=== PATIENT | female | born 1980 | race Caucasian/White ===

== ENCOUNTER 2023-09-05 13:12 | Inpatient (IN) ==
[2023-09-05 14:09] LABS: Hematocrit (blood only) 39.1 % (37.0-47.0); Hemoglobin 13.3 g/dl (12.0-16.0); Mean Corpuscular Hemoglobin 30.2 pg (25.0-34.0); Mean Corpuscular Volume 88.9 fL (80.0-100.0); Mean Platelet Volume 11.2 fL (9.4-12.4); Platelet Count 288 K/uL (130-400); RDW Coefficient of Variation 13.1 % (11.5-14.5); RDW Standard Deviation 42.5 fL (36.4-46.3); White Blood Count 29.58 K/ul (4.8-10.8)
[2023-09-05 14:19] LABS: Pregnancy Test, Serum Negative (Negative)
[2023-09-05 14:21] LABS: Albumin Globulin Ratio 1.1 (0.9-2); Albumin Level 4.1 gm/dl (3.4-5.0); BUN Creatinine Ratio 12.1 (10-20); Bilirubin,Total 0.9 mg/dl (0.2-1.0); Est GFR (African American) 90.2 ml/min; Est GFR (Non-African American) 77.8 ml/min; Globulin 3.6 gm/dl (2.5-4.0); Potassium 3.7 mmol/L (3.5-5.1); Total Protein 7.7 gm/dl (6.0-8.3)
--- NOTE | 2023-09-05 14:24 | Emergency Department Note ---
History of Present Illness General Chief complaint: Abdominal Pain Stated complaint: ABDOMINAL PAINS R SIDE BY RIB CAGE Time Seen by Provider: 09/05/23 14:15 History of Present Illness Maximum Pain Intensity: 9 NAME: FLOR[place] [id number] H[place]IGH AGE: 43 SEX: F : 1980 ARRIVES VIA: Walk-In INFORMANT: Patient ED PROVIDER(S): FANTA [place], Lalita Silvestre MD The patient is a 43-year-old female inmate who arrives to the emergency department for evaluation of right upper quadrant abdominal pain. She reports she has had persistent vomiting, with nausea, and pain with inspiration. She reports hot flashes and chills with no sick contacts. She states the pain began 2 days ago, and reports is worsened. She denies dysuria, diarrhea, constipation, lower abdominal pain, chest pain or shortness of breath. Her vital signs are stable, she is afebrile. Home Medications Medication Instructions Recorded Confirmed Type acetaminophen 325 mg tablet 650 mg PO BID PRN pain/fever 09/05/23 09/05/23 History (Tylenol) bismuth subsalicylate 262 mg/15 mL 524 mg PO BID PRN Gi Upset 09/05/23 09/05/23 History oral suspension (Pepto-Bismol) bupropion HCl 75 mg tablet 75 mg PO BID 09/05/23 09/05/23 History omeprazole 20 mg tablet,delayed 20 mg PO QAM 09/05/23 09/05/23 History release ondansetron 4 mg disintegrating 4 mg PO Q6H PRN Nausea And Vomiting 09/05/23 09/05/23 History tablet trazodone 150 mg tablet 150 mg PO HS 09/05/23 09/05/23 History Allergies Allergy/AdvReac Type Severity Reaction Status Date / Time gabapentin Allergy Unknown On file w/ Unverified 09/05/23 17:44 [facility] Past Med/Surg History Problem List (Updated 09/05/23 @ 19:55 by FANTA Lassiter) Acute cholecystitis (Acute) Social History Smoking Status: Former smoker Hx Alcohol Use: No Hx Substance Use: No Preferred Language: Kiswahili Communication Ability: Effective Laborer Rags Required: No Beliefs That Will Affect Care: None Current Living Situation: Other Feels Safe at Home: Yes Safety Concerns: Feels Safe At This Time Assistive Devices: Denture - Upper Assistive Devices Comment: partial upper dentuires - not here Physical Exam Vital Signs Vital Signs - 24 hr 09/05/23 13:20 Temperature 36.4 C L Temperature Source Temporal Artery Scan Pulse Rate 90 Pulse Rhythm Regular Pulse Strength Normal Respiratory Rate 20 Respiratory Effort / Characteristics Non-Labored Spontaneous Respiratory Depth Normal Respiratory Pattern Regular Blood Pressure 116/85 Blood Pressure Mean 95 Blood Pressure Position Sitting Pulse Oximetry 95 Oxygen Delivery Method Room Air Sepsis Recent Fever Within 48 Hours No Sepsis New/Unexplained Change in Mental Status No Sepsis Action Taken by Nursing No Action Required VITALS: Vitals are noted on the nurse's note and reviewed by myself. Vital signs stable. GENERAL: 43-year-old female, in no acute distress, nondiaphoretic, well- developed well-nourished. SKIN: The skin was without rashes, erythema, edema, or bruising. HEAD: Normocephalic atraumatic. HEART: Regular rate and rhythm without murmurs gallops or rubs. LUNGS: Clear to auscultation bilaterally without wheezes, rales or rhonchi. No retractions or accessory muscle use. ABDOMEN: Positive bowel sounds x 4. Tender to palpation epigastric/right upper quadrant, no rebound tenderness or guarding. MUSCULOSKELETAL: No muscle atrophy, erythema, or edema noted. Full range of motion without joint tenderness in all extremities. No tenderness to palpation. Normal gait. Strength 5/5 throughout. NEURO: Patient was alert and oriented to person place and time. No focal neurological deficits. Course Administered Medications Sodium Chloride (Nss) 500 mls @ 125 mls/hr IV .Q4H [facility] Stop: 10/05/23 15:44 Last Admin: 09/05/23 18:45 Dose: 125 mls/hr Documented By: Infusion: 09/05/23 18:45 Dose: Infused Documented By: Admin: 09/05/23 15:57 Dose: 125 mls/hr Documented By: HOLLIS Morphine Sulfate (Morphine Sulfate 4 Mg/Ml 1 Ml Carp\Vial) 4 mg IV Q3H PRN PRN Reason: Pain (6,7,8,9,10) Stop: 09/19/23 18:39 Last Admin: 09/05/23 19:13 Dose: 4 mg Documented By: NADJA Discontinued Medications Sodium Chloride (Nss) 1,000 mls @ 999 mls/hr IV .Q1H1M ONE Stop: 09/05/23 15:23 Last Infusion: 09/05/23 16:55 Dose: Infused Documented By: Admin: 09/05/23 15:38 Dose: 999 mls/hr Documented By: HOLLIS Cefoxitin Sodium (Mefoxin) 2,000 mg in 60 mls @ 100 mls/hr IV NOW STA Stop: 09/05/23 16:11 Last Admin: 09/05/23 16:04 Dose: Not Given Documented By: HOLLIS Piperacillin Sod/Tazobactam Sod (Zosyn) 4.5 gm in 100 mls @ 200 mls/hr IV NOW ONE Stop: 09/05/23 16:09 Last Infusion: 09/05/23 16:36 Dose: Infused Documented By: Admin: 09/05/23 15:57 Dose: 200 mls/hr Documented By: HOLLIS Ioversol (Optiray 320 100ml) 94 ml IV ONCE ONE Stop: 09/05/23 14:40 Last Admin: 09/05/23 14:39 Dose: 94 ml Documented By: SKY Medical Decision Making Differential Diagnosis Appendicitis, infections, diverticulitis, UTI, obstruction, mesenteric ischemia, aortic pathology, inflammatory bowel disease, renal colic, PUD, pancreatitis, biliary pathology, hernia, volvulus, constipation, as well as other pathologies. Medical Records Attestation: I reviewed the patient's medical records. Home Medications Current Medication List: was personally reviewed by me Laboratory Data Attestation: I reviewed the patient's lab results. CBC shows leukocytosis of 29.58, stable hemoglobin and hematocrit, CMP shows no electrolyte abnormalities, hCG negative, lipase negative, lactate negative. 09/05/23 13:50 09/05/23 13:50 Lab Results 09/05/23 09/05/23 Range/Units 13:50 15:38 WBC 29.58 H (4.8-10.8) K/ul RBC 4.40 (4.20-5.40) M/uL Hgb 13.3 (12.0-16.0) g/dl Hct 39.1 (37.0-47.0) % MCV 88.9 (80.0-100.0) fL MCH 30.2 (25.0-34.0) pg MCHC 34.0 (32.0-36.0) g/dL RDW Std Deviation 42.5 (36.4-46.3) fL RDW Coeff of Jesica 13.1 (11.5-14.5) % Plt Count 288 (130-400) K/uL MPV 11.2 (9.4-12.4) fL Immature Gran % (Auto) 0.5 % Neut % (Auto) 89.2 % Lymph % (Auto) 5.1 % [place] % (Auto) 5.0 % Eos % (Auto) 0.0 % Baso % (Auto) 0.2 % Neut # (Auto) 26.34 H (1.40-6.50) K/uL Lymph # (Auto) 1.52 (1.20-3.40) K/uL [place] # (Auto) 1.49 H (0.11-0.59) K/uL Eos # (Auto) 0.01 (0.00-0.50) K/uL Baso # (Auto) 0.06 (0.00-0.20) K/uL Immature Gran # (Auto) 0.16 (0.01-0.20) K/uL Sodium 136 (136-145) mmol/L Potassium 3.7 (3.5-5.1) mmol/L Chloride 99 (98-107) mmol/L Carbon Dioxide 29 (21-32) mmol/L Anion Gap 8 (3-11) BUN 11 (6-23) mg/dl Creatinine 0.91 (0.6-1.2) mg/dl Est Cr Clr Drug Dosing 81.0 ml/min Est GFR ( Amer) 90.2 ml/min Est GFR (Non-Af Amer) 77.8 ml/min BUN/Creatinine Ratio 12.1 (10-20) Glucose 122 H (70-99(Fasting)) mg/dl Lactate 1.1 (0.4-2.0) mmol/L Calcium 9.0 (8.6-10.3) mg/dl Total Bilirubin 0.9 (0.2-1.0) mg/dl AST 11 L (13-39) U/L ALT 10 (7-52) U/L Alkaline Phosphatase 55 (34-104) U/L Total Protein 7.7 (6.0-8.3) gm/dl Albumin 4.1 (3.4-5.0) gm/dl Globulin 3.6 (2.5-4.0) gm/dl Albumin/Globulin Ratio 1.1 (0.9-2) Lipase 3 L (11-82) U/L HCG, Qual Negative (Negative) Imaging Data Radiologist's Impression: Abdomen/Pelvis CT 09/05/23 14:23 CT abd pelvis IV con only CLINICAL HISTORY: abdominal pain, leukocytosis TECHNIQUE: Helical axial images of the abdomen and pelvis were obtained and displayed. Automated dose lowering techniques and/or adjustment according to patient size were utilized for this exam. This exam was performed with intravenous contrast. CT DOSE: 1413.55 mGy.cm COMPARISON: None available at the time of this dictation. FINDINGS: Lower chest: Bibasilar atelectasis versus scarring is seen. Liver: Unremarkable. No focal lesions are seen. Gallbladder and biliary tree: Gallstone is seen in the gallbladder neck measuring approximately 15 mm. Thickened gallbladder wall is seen measuring approximately 4 mm and pericholecystic fluid and fat stranding are seen. No intra- or extrahepatic biliary ductal dilation. Pancreas: Unremarkable, no focal lesions. Spleen: Unremarkable. Adrenals: Unremarkable. Kidneys and ureters: Unremarkable. Bladder: Unremarkable. Reproductive organs: Uterus is unremarkable. There is a cystic right adnexal lesion which may represent ovarian cyst. Bowel: Unremarkable. Lymph nodes Retroperitoneal: Unremarkable. Pelvic: Unremarkable. Mesenteric: Unremarkable. Peritoneum: Pericholecystic fluid and fat stranding is seen. Pelvic fluid is seen. Vessels: Unremarkable. Abdominal wall: Unremarkable. Bones: Degenerative changes in the visualized spine. IMPRESSION: Findings are compatible with acute cholecystitis. No signs of gallbladder perforation. ACT 112: Negative or not required by law. Electronically signed by: Vince Abebe M.D. 09/05/2023 3:12 PM Blood Pressure Blood Pressure Findings: Normal blood pressure MDM Narrative The patient is a 43-year-old inmate who arrives to the emergency department for the above-stated complaint. On examination the patient has symptoms consistent with cholecystitis. Initial workup was performed in triage including a saline lock, CBC, CMP, lipase, hCG, lactate, urinalysis. CBC shows leukocytosis of 29.58, stable hemoglobin and hematocrit, CMP shows no electrolyte abnormalities, hCG negative, lipase negative, lactate negative. Urinalysis was not obtained during the patient's stay. CT imaging of the abdomen and pelvis shows a gallstone in the gallbladder neck measuring approximately 15 mm with thickened gallbladder wall measuring approximately 4 mm and cholecystic fluid and fat stranding. There appears to be no intra or extrahepatic biliary ductal dilation. I consulted general surgery, Bridgett Wright PA-C who agreed to evaluate the patient. She agreed the patient would be suited for surgical intervention, however the patient did eat a few crackers during her stay and would not be able to have surgical intervention until tomorrow. IV maintenance fluids as well as Zosyn were ordered for the patient per her request. Case management was contacted to facilitate the admission process. The patient will be under the care of of Dr. Ramirez, as well as Bridgett Wright PA-C. Please refer to their documentation for further patient care. Impression & Plan Acute cholecystitis Discharge Plan Visit Data Chief Complaint: Abdominal Pain Stated Complaint: ABDOMINAL PAINS R SIDE BY RIB CAGE ED Provider: Lalita Silvestre ED Midlevel Provider: Acacia Matamoros Discharge Problem: Acute cholecystitis Patient Disposition: Admitted As Inpatient Discharge Instructions Interventions: ED Discharge Assessment Last Done: 09/05/23 18:12
[2023-09-05 14:27] LABS: Basophils # (auto) 0.06 K/uL (0.00-0.20); Basophils % (auto) 0.2 %; Eosinophils # (auto) 0.01 K/uL (0.00-0.50); Immature Granulocytes # (auto) 0.16 K/uL (0.01-0.20); Immature Granulocytes % (auto) 0.5 %; Lymphocytes # (auto) 1.52 K/uL (1.20-3.40); Lymphocytes % (auto) 5.1 %; Monocytes # (auto) 1.49 K/uL (0.11-0.59); Neutrophils # (auto) 26.34 K/uL (1.40-6.50); Neutrophils % (auto) 89.2 %
[2023-09-05] MEDS: OPTIRAY 320 100ml IV ONE (14:39)
--- NOTE | 2023-09-05 15:13 | CT Scan Report ---
CT abd pelvis IV con only CLINICAL HISTORY: abdominal pain, leukocytosis TECHNIQUE: Helical axial images of the abdomen and pelvis were obtained and displayed. Automated dose lowering techniques and/or adjustment according to patient size were utilized for this exam. This e xam was performed with intravenous contrast. CT DOSE: 1413.55 mGy.cm COMPARISON: None available at the time of this dictation. FINDINGS: Lower chest: Bibasilar atelectasis versus scarring is seen. Liver: Unremarkable. No focal lesions are seen. Gallbladder and biliary tree: Gallstone is seen in the gallbladder neck measuring approximately 15 mm . Thickened gallbladder wall is seen measuring approximately 4 mm and pericholecystic fluid and fat s tranding are seen. No intra- or extrahepatic biliary ductal dilation. Pancreas: Unremarkable, no focal lesions. Spleen: Unremarkable. Adrenals: Unremarkable. Kidneys and ureters: Unremarkable. Bladder: Unremarkable. Reproductive organs: Uterus is unremarkable. There is a cystic right adnexal lesion which may represe nt ovarian cyst. Bowel: Unremarkable. Lymph nodes Retroperitoneal: Unremarkable. Pelvic: Unremarkable. Mesenteric: Unremarkable. Peritoneum: Pericholecystic fluid and fat stranding is seen. Pelvic fluid is seen. Vessels: Unremarkable. Abdominal wall: Unremarkable. Bones: Degenerative changes in the visualized spine. IMPRESSION: Findings are compatible with acute cholecystitis. No signs of gallbladder perforation. ACT 112: Negative or not required by law. Electronically signed by: Vince Abebe M.D. 09/05/2023 3:12 PM
[2023-09-05] MEDS: SODIUM CHLORIDE 0.9% 1,000 ML IV ONE (15:38)
--- NOTE | 2023-09-05 15:38 | History & Physical Report ---
Date of Service September 05, 2023 Assessment & Plan (1) Acute cholecystitis: Plan: This is a 43yF prisoner with no significant PMH who presents to the [facility] ED on 09/05/23 with complaints of RUQ pain since 2 days ago. Her pain has been associated with some nausea/vomiting, hot flashes, chills, and pain with deep breaths. As the pain has been severe she came to the ER for further evaluation and a CT a/p was obtained that revealed findings concerning for acute cholecystitis with a gallstone seen in the gallbladder neck measuring approximately 15 mm. It also shows a thickened gallbladder wall with pericholecystic fluid and fat stranding are seen. There is no intra- or extrahepatic biliary ductal dilation. Patient's vitals are stable and she is afebrile. WBC 29, Hbg 13. Labs reveal unremarkable LFTs with Tb 0.9, AST 11, ALT 10, Alkp 55, lipase 3. On examination abdomen is soft, non distended, with tenderness to palpation in the RUQ. Exam, history, clinical findings all consistent with acute cholecystitis. As patient has not been NPO we will admit the patient and order maintenance IVF, NPO status, IV abx(zosyn), and prn pain/nausea control and plan on proceeding with a laparoscopic cholecystectomy tomorrow AM with Dr. Ramirez. We will admit her to our service. repeat labs tomorrow. patient is agreeable with the plan. History of Present Illness Primary Care Provider: [facility] This is a 43yF prisoner with no significant PMH who presents to the [facility] ED on 09/05/23 with complaints of RUQ pain. Patient states her pain started 2 days ago around 5:30 in the AM. The evening prior to this she did eat some buffalo mac and cheese. Her pain has been associated with some nausea/vomiting, hot flashes, chills, and pain with deep breaths. As the pain has been ongoing and severe, currently rating it a 9/10 in severity she came to the ER for further evaluation. A CT/ap was obtained that revealed findings concerning for acute cholecystitis. A gallstone is seen in the gallbladder neck measuring approximately 15 mm, it also shows a thickened gallbladder wall with pericholecystic fluid and fat stranding are seen. No intra- or extrahepatic biliary ductal dilation. The patient said she felt similarly ill when she had kidney stones in the past. She denies any major medical problems or abdominal surgical history. She has not had anything of substance to eat in the last 2 days, but did have some crackers and gatorade today around 12. Allergies Allergy/AdvReac Type Severity Reaction Status Date / Time gabapentin Allergy Unknown On file w/ Unverified 09/05/23 17:44 [facility] Home Medications Medication Instructions Recorded Confirmed Type acetaminophen 325 mg tablet 650 mg PO BID PRN pain/fever 09/05/23 09/05/23 History (Tylenol) bismuth subsalicylate 262 mg/15 mL 524 mg PO BID PRN Gi Upset 09/05/23 09/05/23 History oral suspension (Pepto-Bismol) bupropion HCl 75 mg tablet 75 mg PO BID 09/05/23 09/05/23 History omeprazole 20 mg tablet,delayed 20 mg PO QAM 09/05/23 09/05/23 History release ondansetron 4 mg disintegrating 4 mg PO Q6H PRN Nausea And Vomiting 09/05/23 09/05/23 History tablet trazodone 150 mg tablet 150 mg PO HS 09/05/23 09/05/23 History Past Med/Surg History Problem List Acute cholecystitis (Acute) Social History Smoking Status: Former smoker Hx Alcohol Use: No Hx Substance Use: No Preferred Language: [place] Communication Ability: Effective Soaking Tank Worker Required: No Beliefs That Will Affect Care: None Current Living Situation: Other Feels Safe at Home: Yes Safety Concerns: Feels Safe At This Time Assistive Devices: Denture - Upper Assistive Devices Comment: partial upper dentuires - not here Review of Systems Constitutional: + chills and + sweats; no fever Respiratory: pain in the abdomen with deep inspiration Cardiovascular: no chest pain Gastrointestinal: + abdominal pain, + bloating, + nausea a nd + vomiting Genitourinary: no problem reported Physical Exam Physical Exam: awake, alert, no distress but does appear in some pain Constitutional: well developed and well nourished Respiratory: normal respiratory effort Cardiovascular: Rate/Rhythm: regular rate Gastrointestinal (Abdomen): Inspection/Auscultation: abdomen not distended Percussion/Palpation: + abdomen tender (ttp in the RUQ) and abdomen soft Results & Data Results & Data Vital Signs (Past 12 Hours) Vital Signs Temp Pulse Resp BP Pulse Ox O2 Del Method 09/05/23 13:20 97.5 F L 90 20 116/85 95 Room Air Diagnostic Findings CT abd pelvis IV con only CLINICAL HISTORY: abdominal pain, leukocytosis TECHNIQUE: Helical axial images of the abdomen and pelvis were obtained and displayed. Automated dose lowering techniques and/or adjustment according to patient size were utilized for this exam. This exam was performed with intravenous contrast. CT DOSE: 1413.55 mGy.cm COMPARISON: None available at the time of this dictation. FINDINGS: Lower chest: Bibasilar atelectasis versus scarring is seen. Liver: Unremarkable. No focal lesions are seen. Gallbladder and biliary tree: Gallstone is seen in the gallbladder neck measuring approximately 15 mm. Thickened gallbladder wall is seen measuring approximately 4 mm and pericholecystic fluid and fat stranding are seen. No intra- or extrahepatic biliary ductal dilation. Pancreas: Unremarkable, no focal lesions. Spleen: Unremarkable. Adrenals: Unremarkable. Kidneys and ureters: Unremarkable. Bladder: Unremarkable. Reproductive organs: Uterus is unremarkable. There is a cystic right adnexal lesion which may represent ovarian cyst. Bowel: Unremarkable. Lymph nodes Retroperitoneal: Unremarkable. Pelvic: Unremarkable. Mesenteric: Unremarkable. Peritoneum: Pericholecystic fluid and fat stranding is seen. Pelvic fluid is seen. Vessels: Unremarkable. Abdominal wall: Unremarkable. Bones: Degenerative changes in the visualized spine. IMPRESSION: Findings are compatible with acute cholecystitis. No signs of gallbladder perforation. ACT 112: Negative or not required by law. Electronically signed by: Vince Abebe M.D. 09/05/2023 3:12 PM PG Care Time/CCT Total # of Minutes Spent Total Time Spent with Patient: Total time spent is greater than 50% in coordination of care (as documented) at patient's floor/unit and/or counseling patient: Coding Level of Care Code 98281 INT INP/OBS CARE 2/55MIN Diagnoses Acute cholecystitis K81.0
[2023-09-05] MEDS: PIPERACILLIN/TAZOBACTAM 4.5 GM/100 ML BAG IV ONE (15:57)
[2023-09-05] MEDS: SODIUM CHLORIDE 0.9% 500 ML IV SCH (15:57)
[2023-09-05] MEDS: cefOXitin 2,000 MG/60 ML BAG IV STA (16:04)
[2023-09-05 17:50] LABS: Appearance Urine Clear (Clear); Bacteria Urine Automated None Seen (None Seen); Bilirubin Urine Negative (Negative); Blood Urine Negative (Negative); Cast Urine Automated 0-2 /lpf (0-2); Color Urine Yellow; Glucose Urine UA Negative (Negative); Ketones Urine 1+ (Negative); Leukocyte Esterase Urine Negative (Negative); Nitrite Urine Negative (Negative); Protein Urine 1+ (Negative); Specific Gravity Urine > 1.045 (1.000-1.030); Urobilinogen Urine Negative (Negative); WBC Urine Automated 0-5 /hpf (0-5); pH Urine 7.5 (4.5-7.5)
[2023-09-05] MEDS ORDERED: MoRPHine SULFATE 2 MG/ML CARP IV PRN (18:40)
[2023-09-05] MEDS: MoRPHine SULFATE 4 MG/ML 1 ML CARP\\VIAL IV PRN (19:13)
[2023-09-05] MEDS: ONDANSETRON INJ 2 MG/ML 2 ML VIAL IV PRN (20:01)
[2023-09-05] MEDS: ACETAMINOPHEN 1,000 MG/100 ML VIAL IV PRN (20:11)
[2023-09-05] MEDS: HYDROmorphone INJ 0.5 MG/0.5 ML SYR IV PRN (20:12)
[2023-09-05] MEDS: PIPERACILLIN/TAZOBACTAM 4.5 GM in DEXTROSE 5% MINI-B 100 ML IV SCH (20:55)
--- NOTE | 2023-09-06 05:38 | Surgery Progress Note ---
Date of Service September 06, 2023 Assessment & Plan (1) Acute cholecystitis: Plan: Patient has been admitted to the surgical service, with plan as follows: CT scan of the abdomen and pelvis on 09/04/2022 showed findings compatible with acute cholecystitis. (A gallstone was noted in the gallbladder neck with thickening of the gallbladder wall and pericholecystic fluid.) Continue analgesics as needed Continue antiemetics as needed Continue antibiotics in form of Zosyn Patient has been n.p.o. Continue IV fluids while patient is n.p.o. Check a.m. labs when available Patient is tentatively scheduled for cholecystectomy with Dr. Ramirez today as above. discussed options/risks ( bleeding/infection/injury to other organs/bile duct injury or leak/blood clots etc...) questions answered. will proceed with joao hernandez today Admission and Anticipated Discharge Date Admission Date: September 05, 2023 Subjective Patient is currently resting in bed. She notes continued pain in the right upper quadrant which has been alleviated somewhat with Dilaudid. She has also had some intermittent nausea and vomiting. She denies any fevers, shakes, or chills Physical Exam Gastrointestinal (Abdomen): Abdomen is moderately distended. Patient has significant tenderness with palpation in the right upper quadrant. Results & Data Vital Signs (Past 12 Hours) Vital Signs Temp Pulse Pulse Resp BP BP Pulse Ox 09/05/23 20:40 37.3 C 86 16 117/77 93 09/05/23 18:41 37.2 C 76 18 134/83 95 09/05/23 18:12 79 16 144/64 H 96 O2 Del Method 09/05/23 20:40 Room Air 09/05/23 18:41 Room Air 09/05/23 18:12 Room Air PG Care Time/CCT Total # of Minutes Spent Total Time Spent with Patient: Total time spent is greater than 50% in coordination of care (as documented) at patient's floor/unit and/or counseling patient: Coding Level of Care Code 23578 SUB INP/OBS CARE 04/17MIN Diagnoses Acute cholecystitis K81.0
[2023-09-06] MEDS ORDERED: DEXAMETHASONE SOD INJ 4 MG/ML VIAL ONE (07:06)
[2023-09-06] MEDS ORDERED: MIDAZOLAM HCL 1 MG/ML 2ML VIAL ONE (07:06)
[2023-09-06] MEDS ORDERED: ROCURONIUM BROMIDE 10 MG/ML 5 ML VIAL IV ONE (07:06)
[2023-09-06] MEDS ORDERED: GLYCOPYRROLATE 0.2 MG/ML VIAL ONE (07:06)
[2023-09-06] MEDS ORDERED: LIDOCAINE 2% 2 ML VIAL/AMP(20MG/ML) INFIL ONE (07:06)
[2023-09-06] MEDS ORDERED: ONDANSETRON INJ 2 MG/ML 2 ML VIAL ONE (07:06)
[2023-09-06] MEDS ORDERED: NEOSTIGMINE METHYLSULFATE 1 MG/ML 10ML VIAL ONE (07:06)
[2023-09-06] MEDS ORDERED: PROPOFOL IV EMULSION 10 MG/ML 20 ML VIAL IV ONE (07:06)
[2023-09-06] MEDS ORDERED: fentaNYL citrate PF 100 MCG/2 ML VIAL ONE ×2 (07:07)
--- NOTE | 2023-09-06 07:18 | Anesthesiology Consultation ---
Date of Service September 06, 2023 Assessment & Plan ASA ASA2 Proposed Anesthesia Anesthesia Type: General Risk / Benefits Reviewed With: PT / POA / Parent / Guardian, Accepts Plan and Informed Consent Obtained History Surgery Operation Date: 09/06/23 07:30 Proposed Procedures p Laparoscopic Cholecystectomy - Justyn Ramirez, Height/Weight Height: 5 ft 1 in Weight: 87.6 kg Allergies Allergy/AdvReac Type Severity Reaction Status Date / Time gabapentin Allergy Unknown On file w/ Unverified 09/05/23 17:44 [facility] Medications Home Medications Medication Instructions Recorded Confirmed Last Taken acetaminophen 325 mg tablet 650 mg PO BID PRN pain/fever 09/05/23 09/05/23 09/05/23 (Tylenol) bismuth subsalicylate 262 mg/15 mL 524 mg PO BID PRN Gi Upset 09/05/23 09/05/23 09/02/23 oral suspension (Pepto-Bismol) bupropion HCl 75 mg tablet 75 mg PO BID 09/05/23 09/05/23 09/05/23 omeprazole 20 mg tablet,delayed 20 mg PO QAM 09/05/23 09/05/23 09/05/23 release ondansetron 4 mg disintegrating 4 mg PO Q6H PRN Nausea And Vomiting 09/05/23 09/05/23 09/05/23 tablet trazodone 150 mg tablet 150 mg PO HS 09/05/23 09/05/23 09/04/23 Active Medications Generic Name Dose Route Start Last Admin Trade Name Freq PRN Reason Stop Dose Admin Hydromorphone HCl 0.5 mg 09/05/23 19:59 09/06/23 03:15 Hydromorphone Inj 0.5 Mg/0.5 Ml Syr IV 09/19/23 19:58 0.5 mg Q6H PRN Administration Severe Pain (Scale 7, 8, 9,10) Sodium Chloride 500 mls @ 125 mls/hr 09/05/23 15:45 09/06/23 03:17 Nss IV 10/05/23 15:44 125 mls/hr .Q4H DESHAUN Administration Piperacillin Sod/Tazobactam 100 mls @ 25 mls/hr 09/05/23 20:45 09/06/23 05:05 Sod 4.5 gm/ Dextrose IV 09/15/23 20:44 25 mls/hr Q8H DESHAUN Administration Protocol Acetaminophen 1,000 mg in 100 mls @ 400 mls/hr 09/05/23 18:40 09/05/23 20:26 Ofirmev IV 09/08/23 18:39 Infused Q8H PRN Infusion Mild Pain (Scale 1, 2, 3) Ondansetron HCl 4 mg 09/05/23 18:40 09/05/23 20:01 Ondansetron Inj 2 Mg/Ml 2 Ml Vial IV 10/05/23 18:39 4 mg Q4H PRN Administration Nausea And Vomiting NPO Date Last Intake of Fluids: 09/05/23 Time Last Intake of Fluids: 23:59 Date Last Intake of Solids: 09/05/23 Time Last Intake of Solids: 23:59 Exercise / Class Metabolic Activity II 4-5 Yardwork/Stairs/Walk up hill Past Anesthesia History No Hx of Anesthesia Complications and No Family Hx of Anesthesia Complications History of PONV No Hx of PONV and No Hx of Motion Sickness Social History Smoking Status: Former smoker Hx Alcohol Use: No Hx Substance Use: No Review of Systems denies fever/cough/ colds/ chest pain/ SOB/ NADIA denies NADIA Physical Exam Vital Signs Last Vital Signs Temp 37.3 C 09/05/23 20:40 Pulse 86 09/05/23 20:40 Resp 16 09/05/23 20:40 BP 117/77 09/05/23 20:40 Pulse Ox 93 09/05/23 20:40 O2 Del Method Room Air 09/05/23 20:40 ENMT Mouth: no TMJ abnormality and no dentition abnormality Thyromental Distance: > or= 3.5 Finger Breadths Mallampati Class: II Neck neck extension not limited Respiratory normal respiratory effort; no respiratory distress Auscultation: lungs clear to auscultation bilaterally Cardiovascular Rate/Rhythm: regular rate and regular rhythm Neurologic moves all extremities Psychiatric Orientation: alert and oriented x 3 Testing Laboratory Results Urine Color Yellow 09/05/23 17:19 Urine Appearance Clear (Clear) 09/05/23 17:19 Urine pH 7.5 (4.5-7.5) 09/05/23 17:19 Ur Specific [place] > 1.045 (1.000-1.030) H 09/05/23 17:19 Urine Protein 1+ (Negative) H 09/05/23 17:19 Urine Glucose (UA) Negative (Negative) 09/05/23 17:19 Urine Ketones 1+ (Negative) H 09/05/23 17:19 Urine Nitrite Negative (Negative) 09/05/23 17:19 Ur Leukocyte Esterase Negative (Negative) 09/05/23 17:19 Urine WBC (Auto) 0-5 /hpf (0-5) 09/05/23 17:19 Urine RBC (Auto) 3-5 /hpf (0-2) H 09/05/23 17:19 U Hyaline Cast (Auto) 0-2 /lpf (0-2) 09/05/23 17:19 U Epithel Cells (Auto) 3-5 /hpf (0-2) H 09/05/23 17:19 Urine Bacteria (Auto) None Seen (None Seen) 09/05/23 17:19
[2023-09-06] MEDS ORDERED: ePHEDrine sulfate 50 MG/ML AMP IV PRN (07:19)
[2023-09-06] MEDS ORDERED: ONDANSETRON INJ 2 MG/ML 2 ML VIAL IV PRN (07:19)
[2023-09-06] MEDS ORDERED: fentaNYL citrate PF 100 MCG/2 ML VIAL IV PRN (07:19)
[2023-09-06] MEDS ORDERED: HYDROmorphone INJ 2 MG/ML SYR/VIAL IV PRN (07:19)
[2023-09-06] MEDS ORDERED: ATROPINE SULFATE 0.1 MG/ML 10ML SYR IV PRN (07:19)
[2023-09-06 07:26] LABS: Hematocrit (blood only) 33.4 % (37.0-47.0); Hemoglobin 11.2 g/dl (12.0-16.0); Mean Corpuscular Hemoglobin 29.8 pg (25.0-34.0); Mean Corpuscular Hgb Conc 33.5 g/dL (32.0-36.0); Mean Corpuscular Volume 88.8 fL (80.0-100.0); Mean Platelet Volume 11.3 fL (9.4-12.4); Platelet Count 246 K/uL (130-400); RDW Coefficient of Variation 13.2 % (11.5-14.5); RDW Standard Deviation 43.3 fL (36.4-46.3); Red Blood Count 3.76 M/uL (4.20-5.40); White Blood Count 31.15 K/ul (4.8-10.8)
[2023-09-06 07:41] LABS: Basophils # (auto) 0.04 K/uL (0.00-0.20); Basophils % (auto) 0.1 %; Immature Granulocytes # (auto) 0.18 K/uL (0.01-0.20); Immature Granulocytes % (auto) 0.6 %; Lymphocytes # (auto) 1.24 K/uL (1.20-3.40); Monocytes # (auto) 1.42 K/uL (0.11-0.59); Monocytes % (auto) 4.6 %; Neutrophils # (auto) 28.27 K/uL (1.40-6.50); Neutrophils % (auto) 90.7 %
[2023-09-06 07:59] LABS: Albumin Globulin Ratio 1.1 (0.9-2); Albumin Level 3.2 gm/dl (3.4-5.0); BUN Creatinine Ratio 12.5 (10-20); Calcium 7.6 mg/dl (8.6-10.3); Creatinine Clr Calc Pharmacy 102.4 ml/min; Est GFR (African American) 119.7 ml/min; Est GFR (Non-African American) 103.3 ml/min; Potassium 3.4 mmol/L (3.5-5.1); Total Protein 6.2 gm/dl (6.0-8.3)
[2023-09-06] MEDS ORDERED: SUGAMMADEX SODIUM 200 MG/2 ML VIAL IV ONE (08:18)
[2023-09-06] MEDS: BUPIVACAINE/EPINEPHRINE 0.5% MPF 1:200,000 30 ML VIAL ONE (08:56)
[2023-09-06] MEDS ORDERED: KETOROLAC 30 MG/ML VIAL ONE (09:09)
--- NOTE | 2023-09-06 09:12 | Operative Report ---
PG Post Operative Report Pre & Post Diagnosis Operation Date: 09/06/23 07:30 Pre-Op Diagnosis: Acute Cholecystitis Post-Op Diagnosis: Acute Cholecystitis I identified the patient and participated in the time-out.: Yes Procedure Operation Date: 09/06/23 07:30 Actual Procedures p Laparoscopic Cholecystectomy(Not Applicable) - Justyn Ramirez DO Surgeon Justyn Ramirez DO [employer] n/a Estimated Blood Loss 20 Findings Consistent with Post-Op Diagnosis Specimens 1. gall bladder fluid for gram stain/culture 2. gallbladder Description of Procedure After informed consent was obtained the patient was taken to the operating room and placed in the supine position. After successful intubation the abdomen was sterilely prepped and draped in usual fashion. A periumbilical incision was made with an 11 blade scalpel and carried down through the soft tissue using electrocautery. The anterior rectus fascia was opened using electrocautery and 2 #0 Vicryl stay sutures were placed. The peritoneum was elevated with hemostats and incised under direct vision using Metzenbaum scissors. A finger sweep was performed and a 12 mm Ervin trocar was placed. The abdomen was insufflated to 18 mmHg. The laparoscope was inserted and the abdomen was examined in 360. The gallbladder was acutely inflamed with a lot of adhesions to the stomach and omentum. A subxiphoid 5 mm port which was later converted to a 12 mm port and 2 right upper quadrant 5 mm ports were placed under direct vision. The patient was placed in a reverse Trendelenburg position and slightly airplaned to the left. I began by aspirating the gallbladder with an aspiration needle. Some of this fluid was sent for Gram stain culture and sensitivity. Next, the gallbladder was grasped and elevated superiorly and laterally. A [place] dissector was used to take down adhesions around the neck of the gallbladder. The cystic duct was identified and skeletonized. It was clipped twice proximally and once distally and transected using a laparoscopic scissor. In similar fashion the cystic artery was identified and skeletonized clipped and divided. There was a small posterior arterial branch which was clipped and divided as well. The gallbladder was removed from the gallbladder fossa with electrocautery. It was placed into an Endo Catch bag. Thorough irrigation was performed. At the end of the procedure there was adequate hemostasis and no evidence of any bile leaks. I decided to place a 10 flat Jaspreet-Rees drain into the right upper quadrant and brought out through one of the 5 mm trocar sites. It was secured to the skin using 2-0 nylon. A final look around the abdomen showed no other abnormalities. The gallbladder and trochars were all removed and the abdomen was desufflated. The fascia of the camera port was closed using 0 Vicryl in a [id number] fashion. All the wounds were irrigated and closed using 4-0 Monocryl. Marcaine was injected around them for postoperative analgesia and skin glue used as a dressing. The patient was awaken extubated and transferred to recovery in stable condition. I attest to the content of the Intraoperative Record and any orders documented therein. Any exceptions are noted below.
--- NOTE | 2023-09-06 09:52 | Anesthesiology Progress Note ---
Date of Service September 06, 2023 Anesthesia Post Procedure Vital Signs Vital Signs: Temp Pulse Pulse Pulse Resp BP BP 09/06/23 09:45 89 23 119/78 09/06/23 09:35 36.4 C L 84 19 130/85 09/06/23 09:25 82 24 136/80 09/06/23 09:15 83 20 137/80 09/06/23 09:05 36.7 C 96 H 16 123/80 09/05/23 20:40 37.3 C 86 16 117/77 09/05/23 18:41 37.2 C 76 18 134/83 09/05/23 18:12 79 16 144/64 H 09/05/23 16:15 77 09/05/23 13:20 36.4 C L 90 20 116/85 Pulse Ox O2 Del Method O2 Flow Rate 09/06/23 09:45 92 Nasal Cannula 2 09/06/23 09:35 92 Nasal Cannula 2 09/06/23 09:25 94 Oxymask 4 09/06/23 09:15 97 Oxymask 12 09/06/23 09:05 93 Oxymask 12 09/05/23 20:40 93 Room Air 09/05/23 18:41 95 Room Air 09/05/23 18:12 96 Room Air 09/05/23 16:15 09/05/23 13:20 95 Room Air Pain Intensity Abdomen: Pain Intensity: 4 Transfer of Care Handoff Completed per policy Notes Mental Status: alert / awake / arousable and participated in evaluation Patient Amnestic to Procedure: Yes Nausea / Vomiting: adequately controlled Pain: adequately controlled Airway Patency, RR, SpO2: stable & adequate BP & HR: stable & adequate Hydration State: stable & adequate Anesthetic Complications: no major complications apparent and Pt Satisfied with anesthetic care
[2023-09-06] MEDS: oxyCODONE HCL IR 5 MG TAB (IMMEDIATE RELEASE) PO PRN (12:55)
[2023-09-06] MEDS: buPROPion HCl 75 MG TABLET PO SCH (22:35)
--- NOTE | 2023-09-07 05:23 | Surgery Progress Note ---
Date of Service September 07, 2023 Assessment & Plan (1) Acute cholecystitis: Plan: Status post laparoscopic cholecystectomy on 09/06/2023 (postoperative day #1) Continue analgesics as needed Continue antiemetics as needed Continue antibiotics in form of Zosyn while hospitalized Continue liquid diet for the present time; consideration be given to advancing later this morning Continue SHABANA drain to bulb suction Ambulate/mobilize as able Encourage use of incentive spirometer Check a.m. labs when available If patient remains hospitalized today consider adding Lovenox or subcutaneous heparin for DVT prevention providing stability on labs as noted as above. doing better. valerie full liquids. labs improving will advance to regular diet. will monitor another 24 hours. likely d/c tomorrow. Admission and Anticipated Discharge Date Admission Date: September 05, 2023 Subjective Patient is resting comfortably in bed. She notes some incisional pain since her surgery but overall notes that her right upper quadrant abdominal pain has markedly improved. She has thus far tolerated liquids since her surgery. She has not had return of bowel function since her surgery. She notes that she has been able to ambulate and she is urinating without difficulty. She denies fevers, shakes, or chills. Physical Exam Gastrointestinal (Abdomen): Abdomen is minimally distended, soft, and nonrigidmarkedly less tender to palpation compared to yesterday's exam. Surgical incisions are clean, dry, and intact. SHABANA drain is in place draining serosanguineous fluid and has drained 180 cc since placement at time of surgery. Results & Data Vital Signs (Past 12 Hours) Vital Signs Temp Pulse Resp BP Pulse Ox O2 Del Method O2 Flow Rate 09/07/23 03:52 92 Nasal Cannula 2 09/07/23 03:45 36.9 C 70 22 143/90 H 86 L Room Air PG Care Time/CCT Total # of Minutes Spent Total Time Spent with Patient: Total time spent is greater than 50% in coordination of care (as documented) at patient's floor/unit and/or counseling patient: Coding Level of Care Code 31916 Post Operative Follow-Up Diagnoses Acute cholecystitis K81.0
[2023-09-07 06:47] LABS: Hematocrit (blood only) 31.3 % (37.0-47.0); Hemoglobin 10.4 g/dl (12.0-16.0); Mean Corpuscular Hemoglobin 29.6 pg (25.0-34.0); Mean Corpuscular Hgb Conc 33.2 g/dL (32.0-36.0); Mean Corpuscular Volume 89.2 fL (80.0-100.0); Mean Platelet Volume 11.7 fL (9.4-12.4); Platelet Count 253 K/uL (130-400); RDW Coefficient of Variation 13.3 % (11.5-14.5); RDW Standard Deviation 43.7 fL (36.4-46.3); Red Blood Count 3.51 M/uL (4.20-5.40); White Blood Count 21.68 K/ul (4.8-10.8)
[2023-09-07 07:05] LABS: Basophils # (auto) 0.03 K/uL (0.00-0.20); Basophils % (auto) 0.1 %; Immature Granulocytes # (auto) 0.12 K/uL (0.01-0.20); Immature Granulocytes % (auto) 0.6 %; Lymphocytes # (auto) 0.95 K/uL (1.20-3.40); Lymphocytes % (auto) 4.4 %; Monocytes # (auto) 0.92 K/uL (0.11-0.59); Monocytes % (auto) 4.2 %; Neutrophils # (auto) 19.66 K/uL (1.40-6.50); Neutrophils % (auto) 90.7 %
[2023-09-07 07:18] LABS: Albumin Level 3.2 gm/dl (3.4-5.0); BUN Creatinine Ratio 18.6 (10-20); Bilirubin,Total 0.6 mg/dl (0.2-1.0); Calcium 7.8 mg/dl (8.6-10.3); Creatinine Clr Calc Pharmacy 105.3 ml/min; Est GFR (African American) 123.9 ml/min; Est GFR (Non-African American) 106.9 ml/min; Globulin 3.2 gm/dl (2.5-4.0); Potassium 3.6 mmol/L (3.5-5.1); Total Protein 6.4 gm/dl (6.0-8.3)
[2023-09-08 06:23] LABS: Basophils # (auto) 0.04 K/uL (0.00-0.20); Basophils % (auto) 0.3 %; Eosinophils # (auto) 0.02 K/uL (0.00-0.50); Eosinophils % (auto) 0.1 %; Hematocrit (blood only) 29.8 % (37.0-47.0); Immature Granulocytes # (auto) 0.12 K/uL (0.01-0.20); Immature Granulocytes % (auto) 0.8 %; Lymphocytes # (auto) 1.99 K/uL (1.20-3.40); Lymphocytes % (auto) 13.3 %; Mean Corpuscular Hemoglobin 29.7 pg (25.0-34.0); Mean Corpuscular Hgb Conc 33.6 g/dL (32.0-36.0); Mean Corpuscular Volume 88.4 fL (80.0-100.0); Mean Platelet Volume 10.8 fL (9.4-12.4); Monocytes # (auto) 1.02 K/uL (0.11-0.59); Monocytes % (auto) 6.8 %; Neutrophils # (auto) 11.74 K/uL (1.40-6.50); Neutrophils % (auto) 78.7 %; Platelet Count 257 K/uL (130-400); RDW Coefficient of Variation 13.6 % (11.5-14.5); RDW Standard Deviation 44.2 fL (36.4-46.3); Red Blood Count 3.37 M/uL (4.20-5.40); White Blood Count 14.93 K/ul (4.8-10.8)
--- NOTE | 2023-09-08 07:44 | Surgery Progress Note ---
Date of Service September 08, 2023 Assessment & Plan (1) Acute cholecystitis: Plan: POD 2 Lap [place] Tolerating reg diet , no n/v VSS, afebrile WBC downtrending 14 (21) SHABANA serosang fluid Likely D/c today F/u office in [address] Ramirez as above. overall doing fine. will check cxr. if ok will d/c. instructions discussed. Admission and Anticipated Discharge Date Admission Date: September 05, 2023 Subjective Patient reports abd cramping Denies N/V, Fever/Chills, SOB, CP +flats, +BM, Voiding without difficulty, Review of Systems Constitutional: no fever and no chills Respiratory: no dyspnea Gastrointestinal: + abdominal pain (cramping); no nausea a nd no vomiting Genitourinary: no dysuria Physical Exam Physical Exam: alert oriented Constitutional: cooperative and comfortable; no acute distress Respiratory: normal respiratory effort and able to speak in complete sentences; no respiratory distress Cardiovascular: Rate/Rhythm: regular rate Gastrointestinal (Abdomen): Inspection/Auscultation: abdomen normal to inspection, + abdominal surgical incision (CDI, Dermabond, erythema/ecchymosis umbilical incision) and + abdominal surgical drain present (SHABANA seriosang ) Percussion/Palpation: abdomen soft Results & Data Vital Signs (Past 12 Hours) Vital Signs Temp Pulse Resp BP Pulse Ox O2 Del Method 09/07/23 22:09 98.6 F 76 20 117/80 90 Room Air 09/07/23 20:41 Room Air Results CBC w Diff Results: RBC 3.37 M/uL (4.20-5.40) L 09/08/23 WBC 14.93 K/ul (4.8-10.8) H 09/08/23 Hgb 10.0 g/dl (12.0-16.0) L 09/08/23 Hct 29.8 % (37.0-47.0) L 09/08/23 MCV 88.4 fL (80.0-100.0) 09/08/23 MCH 29.7 pg (25.0-34.0) 09/08/23 MCHC 33.6 g/dL (32.0-36.0) 09/08/23 RDW Standard Deviation 44.2 fL (36.4-46.3) 09/08/23 RDW Coefficient of Variation 13.6 % (11.5-14.5) 09/08/23 Plt Count 257 K/uL (130-400) 09/08/23 MPV 10.8 fL (9.4-12.4) 09/08/23 Neutrophils (%) (Auto) 78.7 % 09/08/23 Lymphocytes (%) (Auto) 13.3 % 09/08/23 Monocytes # (Auto) 1.02 K/uL (0.11-0.59) H 09/08/23 Eosinophils # (Auto) 0.02 K/uL (0.00-0.50) 09/08/23 Immature Granulocyte % (Auto) 0.8 % 09/08/23 Neutrophils # (Auto) 11.74 K/uL (1.40-6.50) H 09/08/23 Lymphocytes # (Auto) 1.99 K/uL (1.20-3.40) 09/08/23 Monocytes # (Auto) 1.02 K/uL (0.11-0.59) H 09/08/23 Eosinophils # (Auto) 0.02 K/uL (0.00-0.50) 09/08/23 Basophils # (Auto) 0.04 K/uL (0.00-0.20) 09/08/23 Immature Granulocyte # (Auto) 0.12 K/uL (0.01-0.20) 4 PG Care Time/CCT Total # of Minutes Spent Total Time Spent with Patient: Total time spent is greater than 50% in coordination of care (as documented) at patient's floor/unit and/or counseling patient: Coding Level of Care Code 27705 Post Operative Follow-Up Diagnoses Acute cholecystitis K81.0
--- NOTE | 2023-09-08 09:38 | XRay Report ---
XR chest 1V portable HISTORY: 43 years-old Female low Spo2 while laying down acute hypoxia COMPARISON: CT 09/05/2023 TECHNIQUE: AP view of the chest FINDINGS: Hypoinflation. Heart is upper limits of normal in size. Small pleural effusions with bibasilar consol idation. Bones appear grossly intact. IMPRESSION: Small pleural effusions with mild bibasilar consolidation favoring atelectasis. Pneumonit is could appear similarly. ACT 112: Negative or not required by law. The above report was generated using voice recognition software. It may contain grammatical, syntax o r spelling errors. Electronically signed by: Bentley Christina M.D. 09/08/2023 9:37 AM
== END 2023-09-08 14:01 | DRG 419 ==
LOC: EDSEX 13:12 → ED 13:12 → 3N 15:47